=== PATIENT | female | born 1950 | race Caucasian/White ===

== ENCOUNTER → 2018-07-28 | Outpatient (CLI) | payer OTHER ==
[~2018-07-28] MED LIST: DIOVAN HCT 1601 EACH PO; GLUCOVANCE 5-51 EACH PO; MEDROLDOSEPACK PO; PRILOSEC 20 MG20 MG PO; PROAIR HFA8.5 GM PO; TESSALON PERLE100 MG PO
--- NOTE | 2018-07-28 15:21 | 2DMMODE ---
[place] [address] 2 D/M-MODE ECHOCARDIOGRAM Name: STEPHANIA SANTOS Sean Room: [facility]#: [id number] Admission: 07/28/18 Attend Phys: Buffy Stewart MD Discharge: Date of : 54 Date of Service: 07/28/18 1521 Report #: [id number] THIS REPORT FOR: //name// APPROVED REPORT Study performed: 07/28/2018 14:36:38 EXAM: Comprehensive 2D, Doppler, and color-flow Echocardiogram Patient Location: Out-Patient Status: routine BSA: 2.19 HR: 72 bpm BP: 152/85 mmHg Other Information Study Quality: Adequate Indications Murmur 2D Dimensions LVEF(%): 74.34 (>50%) IVSd: 12.22 (7-11mm) LVOT Diam: 20.61 (18-24mm) LVDd: 45.35 mm PWd: 10.87 (7-11mm) Ascending Ao: 31.28 (22-36mm) LVDs: 25.81 (25-40mm) Aortic Root: 29.41 mm Martinez's LVEF: 74.34 % Volumes Left Atrial Volume (Systole) LA ESV Index: 11.40 mL/m2 Aortic Valve AoV Peak Reynaldo.: 1.93 m/s AO Peak Gr.: 14.82 mmHg LVOT Max P.84 mmHg AO Mean Gr.: 8.22 mmHg LVOT Mean P.75 mmHg LVOT Max V: 1.21 m/s AO V2 VTI: 37.14 cm LVOT Mean V: 0.76 m/s CARLY (VTI): 2.08 cm2 LVOT V1 VTI: 23.19 cm Mitral Valve E/A Ratio: 0.72 MV Decel. Time: 302.50 [place] [address] 2 D/M-MODE ECHOCARDIOGRAM Name: STEPHANIA SANTOS Room: [facility]#: [id number] Admission: 07/28/18 Attend Phys: Buffy Stewart MD Discharge: Date of : 54 Date of Service: 07/28/18 1521 Report #: [id number] MV E Max Reynaldo.: 0.62 m/s MV PHT: 87.73 ms MVA (PHT): 2.51 cm2 TDI E/Lateral E': 8.86 E/Medial E': 7.75 Medial E' Reynaldo.: 0.08 m/s Lateral E' Reynaldo.: 0.07 m/s Pulmonary Valve PV Peak Reynaldo.: 1.07 m/s PV Peak Gr.: 4.55 mmHg Tricuspid Valve RAP Estimate: 5.00 mmHg TR Peak Gr.: 21.57 mmHg RVSP: 26.57 mmHg PA Pressure: 26.57 mmHg Left Ventricle The left ventricle is normal size. There is normal LV segmental wall motion. There is normal left ventricular wall thickness. Left ventricular systolic function is normal. The left ventricular ejection fraction is within the normal range. LVEF is 60%. Grade I - abnormal relaxation pattern. Right Ventricle The right ventricle is normal size. The right ventricular systolic function is normal. Atria The left atrium size is normal. The right atrium size is normal. Aortic Valve Mild aortic valve sclerosis. No aortic regurgitation is present. There is no aortic valvular stenosis. Mitral Valve The mitral valve is normal in structure. Mild mitral regurgitation. No evidence of mitral valve stenosis. Tricuspid Valve The tricuspid valve is normal in structure. Mild tricuspid regurgitation. Pulmonic Valve The pulmonary valve is normal in structure. [place] [address] 2 D/M-MODE ECHOCARDIOGRAM Name: STEPHANIA SANTOS Room: [facility]#: [id number] Admission: 07/28/18 Attend Phys: Buffy Stewart MD Discharge: Date of : 54 Date of Service: 07/28/18 1521 Report #: [id number] valvular regurgitation. Great Vessels The aortic root is normal in size. IVC is normal in size and collapses with >50% inspiration Pericardium There is no pericardial effusion. <Conclusion> The left ventricle is normal size. There is normal left ventricular wall thickness. Left ventricular systolic function is normal. The left ventricular ejection fraction is within the normal range. LVEF is 60%. Grade I - abnormal relaxation pattern. The right ventricle is normal size. The left atrium size is normal. Mild aortic valve sclerosis. No aortic regurgitation is present. There is no aortic valvular stenosis. The mitral valve is normal in structure. Mild mitral regurgitation. The tricuspid valve is normal in structure. IVC is normal in size and collapses with >50% inspiration There is no pericardial effusion. There is normal LV segmental wall motion. <ELECTRONICALLY SIGNED> By: Michael Baxter MD, FACC 07/28/18 [id number] Michael Baxter MD, FACC /INF
== END ==
LOC: M.CRD 14:10
DX: I08.1 Rheumatic disorders of both mitral and tricuspid valves (principal)

== ENCOUNTER → 2019-02-11 | Outpatient (CLI) | payer OTHER | LOC: M.RAD 11:22 | DX: I70.0 Atherosclerosis of aorta (principal); R07.1 Chest pain on breathing; M51.34 Other intervertebral disc degeneration, thoracic region ==

== ENCOUNTER → 2019-08-11 | Outpatient (CLI) | payer OTHER ==
[2019-08-11 10:19] LABS: URINE BILIRUBIN NEGATIVE (Negative); URINE BLOOD NEGATIVE (Negative); URINE CLARITY CLEAR; URINE COLOR YELLOW; URINE GLUCOSE-RANDOM NEGATIVE (Negative); URINE KETONES NEGATIVE (Negative); URINE LEUKOCYTES NEGATIVE (Negative); URINE NITRITE NEGATIVE (Negative); URINE PROTEIN NEGATIVE (Negative); URINE SPECIFIC GRAVITY 1.015 (1.005-1.030)
[2019-08-11 10:25] VITALS: BP 112/79
[2019-08-11 10:28] LABS: HEMOGLOBIN 9.5 gm/dL (12.0-15.0); MCHC 31.7 g/dL (28.0-37.0); MCV 75.7 fL (80.0-100.0); MPV 7.5 fl. (7.2-11.1); PLATELET COUNT* 340 thou/uL (150-400); RBC 3.96 mil/uL (4.20-5.00); RDW-CV 16.9 % (10.5-14.5)
[2019-08-11 11:23] LABS: ABSOLUTE EOSINOPHILS 0.4 thou/uL (0.0-0.7); ABSOLUTE LYMPHOCYTES 1.4 thou/uL (0.8-5.3); ABSOLUTE MONOCYTES 0.3 thou/uL (0.0-1.2); ABSOLUTE NEUTROPHILS 3.8 thou/uL (1.6-8.1); PLATELET ESTIMATE ADEQUATE
--- NOTE | 2019-08-11 11:27 | NUR ---
ARRIVED AMBULATORY. MADE SELF COMFORTABLE. HISTORY REVIEWED. IV STARTED WTIH OUT DFFICULTY. INFUSION COMPELTED AND TOERLATED WELL. DISCHARGE INSTRUCTION REVIEWED. DENEIS QUESTIONS OR NEEDS AT DISCHARGE.
[2019-08-12 09:07] LABS: HEMOGLOBIN 9.1 g/dL (11.1-15.9)
--- NOTE | 2019-08-13 15:41 | HEMONC ---
[address] [address] HEMATOLOGY ONCOLOGY NOTE Name: STEPHANIA SNATOS [facility]#: [id number] Admission: 08/11/19 Attend Phys: Fredis Marcano MD Discharge: Date of : 54 Report #: [id number] THIS REPORT FOR: //name// CC: Buffy Marcano DATE OF SERVICE: 08/11/2019 REFERRING PHYSICIAN: Buffy Stewart MD REASON FOR CONSULTATION: Iron deficiency anemia requiring intravenous iron. SUBJECTIVE: Thank you so much for this consultation. As you know, the patient is a 69-year-old female who had a past medical history of diabetes mellitus, has been evaluated because of iron deficiency. Her hemoglobin on 09/23/2019 showed hemoglobin of 9 with MCV of 77. Iron studies revealed a low ferritin 8 ng/mL with a high normal TIBC of 449 with a low saturation and low total iron. The patient reported mild fatigue; however, she continues to be active and she is still working. The patient reported ice cravings in April. The patient reported sometimes she would see blood in the stool. She had an EGD and colonoscopy, which per the patient showed some polyps and diverticulosis, probable hemorrhoids; however, no reports were available. The patient denies any vaginal bleeding or gross hematuria. She denies any nausea, vomiting, or epigastric pain to suggest peptic ulcer disease. She does not have any inherited blood disorder she is aware of. REVIEW OF SYSTEMS: All systems were reviewed. It was negative except the above. PAST MEDICAL HISTORY: Diabetes mellitus, GERD, hypertension. PAST SURGICAL HISTORY: Tubal ligation and lap band in 2004, reversed in 2009; hernia repair in 2009. HEALTH SCREENING: Last colonoscopy in 04/2019 and mammogram in 09/2018. FAMILY HISTORY: Mother with breast cancer at age of 74. SOCIAL HISTORY: She is an ex-smoker, 1/2 pack between the age of 29 and 50. Does not drink alcohol. MEDICATIONS: Glyburide/metformin 5/500 two times a day, pravastatin 40 mg p.o. daily, Prilosec 20 mg p.o. twice a day, Xanax 0.5 mg as needed. PHYSICAL EXAMINATION: [place] [address] HEMATOLOGY ONCOLOGY NOTE Name: STEPHANIA SANTOS Room: [facility]#: [id number] Admission: 08/11/19 Attend Phys: Fredis Marcano MD Discharge: Date of : 54 Report #: [id number] VITAL SIGNS: Today, blood pressure is 128/81, pulse is 96, respirations 20, temperature is 97.1, saturation is 98% on room air. GENERAL: The patient was sitting in chair, was not in acute distress. LUNGS: Clear to auscultations bilaterally. HEART: Regular rate and rhythm. S1, S2 within normal limits. ABDOMEN: Soft, nontender, nondistended, bowel sounds positive. EXTREMITIES: No edema, no cyanosis, no clubbing. LABORATORY DATA: CBC on 07/24/2019 showed WBC 7.0, hemoglobin 9.0, MCV 77, RDW 15.1 with platelets 379. Iron studies showed low ferritin at 8 ng/mL and saturation 7%, low, TIBC high normal 449. Total iron was at 31, creatinine 0.93. ASSESSMENT AND PLAN: A 69-year-old female was evaluated because of symptomatic iron deficiency anemia with a microcytic anemia. The patient had symptoms of pica (ice cravings). Her iron studies are consistent with iron deficiency. The patient is not able to tolerate oral iron due to severe GI side effects, including indigestion. RECOMMENDATIONS: 1. We will arrange for intravenous iron with Feraheme 510 mg intravenously x 2 one week apart. 2. I would like to complete the work up by obtaining hemolysis workup; however, less likely peripheral blood smear. The patient does not have any suggestion of inherited blood disorder like thalassemia. 3. We will follow up in 4 weeks to evaluate the response to the intravenous iron. 4. Refer back to GI for capsule endoscopy. Also, I would like to obtain a urinalysis to rule out any possibility of microscopic hematuria. <ELECTRONICALLY SIGNED> By: Fredis Marcano MD 08/13/19 1541 [id number] [id number] Marcano MD /nt
== END ==
LOC: M.LAB 04:48 → M.RTH 04:48 → M.INFUS 04:48 → M.RTH 09:00
PROVIDERS: Internal Medicine
DX: D50.9 Iron deficiency anemia, unspecified (principal); I10 Essential (primary) hypertension; E11.9 Type 2 diabetes mellitus without complications; K21.9 Gastro-esophageal reflux disease without esophagitis; Z87.891 Personal history of nicotine dependence

== ENCOUNTER → 2019-08-18 | Outpatient (CLI) | payer OTHER ==
[2019-08-18 08:40] VITALS: BP 121/68
--- NOTE | 2019-08-18 09:21 | NUR ---
ARRIVED AMBULATORY. MADE SELF COMFORTABLE. DENIES ADVERSE REACTION TO INFUSION OF SAME LAST WEEK. IV STARTED WITH OUT DIFFICULTY. INFUSION COMPLETED AND TOLERATED WELL. DENIES QUESTIONS OR NEEDS AT DISCHARGE.
== END ==
LOC: M.INFUS 05:13
DX: D50.9 Iron deficiency anemia, unspecified (principal)

== ENCOUNTER → 2019-09-03 | Outpatient (CLI) | payer OTHER ==
[2019-09-03 08:07] LABS: ABSOLUTE BASOPHILS 0.1 thou/uL (0.0-0.2); ABSOLUTE EOSINOPHILS 0.2 thou/uL (0.0-0.7); ABSOLUTE LYMPHOCYTES 1.5 thou/uL (0.8-5.3); ABSOLUTE MONOCYTES 0.3 thou/uL (0.0-1.2); ABSOLUTE NEUTROPHILS 2.7 thou/uL (1.6-8.1); BASOPHILS 1.1 %; EOSINOPHILS 4.3 %; HEMATOCRIT 33.1 % (37.0-47.0); HEMOGLOBIN 10.8 gm/dL (12.0-15.0); LYMPHOCYTES 31.9 %; MCH 26.7 pg (26.0-34.0); MCHC 32.8 g/dL (28.0-37.0); MCV 81.3 fL (80.0-100.0); MPV 7.3 fl. (7.2-11.1); NUCLEATED RBCS 0 /100WBC; PLATELET COUNT* 265 thou/uL (150-400); POLYS 55.7 %; RBC 4.07 mil/uL (4.20-5.00); RDW-CV 22.8 % (10.5-14.5); WBC 4.8 thou/uL (4.0-11.0)
[2019-09-03 08:29] LABS: OVALOCYTES 1+
[2019-09-03 08:30] LABS: ANISOCYTOSIS 2+; MICROCYTES 1+; PLATELET ESTIMATE ADEQUATE
[2019-09-03 09:13] LABS: % SATURATION 29 % (20-39); IRON 91 ug/dL (50-175)
== END ==
LOC: M.LAB 07:45
PROVIDERS: Internal Medicine
DX: D50.9 Iron deficiency anemia, unspecified (principal)

== ENCOUNTER → 2019-09-08 | Outpatient (CLI) | payer OTHER ==
--- NOTE | 2019-09-11 14:46 | HEMONC ---
[address] [address] HEMATOLOGY ONCOLOGY NOTE Name: STEPHANIA SANTOS Room: [facility].#: [id number] Admission: 09/08/19 Attend Phys: Fredis Marcano MD Discharge: Date of : 54 Report #: [id number] THIS REPORT FOR: //name// CC: Buffylinda Stewart Fredis Marcano DATE OF SERVICE: 09/08/2019 DIAGNOSIS: Iron deficiency anemia. SUBJECTIVE: The patient presented today as four weeks followup. She felt more energy with lest fatigue. Her ice cravings and pica symptoms resolved completely. Her hemoglobin has improved from 9.1 to 10.8 and her ferritin also improved to the level of 350. The patient's report was referred previously for capsule endoscopy since she had an EGD and colonoscopy, which was unremarkable. She continues to deny any blood in the stool. I obtained a urinalysis last visit, which came back negative for any blood in the urine. REVIEW OF SYSTEMS: All systems reviewed. It was negative except the above. PAST MEDICAL, SOCIAL, AND FAMILY HISTORY: Unchanged from last visit. PHYSICAL EXAMINATION: VITAL SIGNS: Today, blood pressure is 150/85, pulse is 81, respirations 20, temperature is 98.1, and saturations 98% on room air. GENERAL: The patient was sitting in chair, was not in acute distress. LUNGS: Clear to auscultations bilaterally. HEART: Regular rate and rhythm. S1, S2 within normal limits. ABDOMEN: Soft, nontender, nondistended, bowel sounds positive. ASSESSMENT AND PLAN: A 69-year-old female who is being evaluated because of iron deficiency anemia, unknown source. The patient had a suboptimal response to intravenous iron with Feraheme. RECOMMENDATIONS: 1. We will repeat her iron studies within next 8 weeks with B12 and folic acid. If the patient does not have normalization of her hemoglobin, we might repeat her IV iron infusion. 2. We will refer the patient to GI for capsule endoscopy to rule out any gastrointestinal blood loss. <ELECTRONICALLY SIGNED> By: Fredis Marcano MD 09/11/19 1446 1022 [id number] Marcano MD /nt
== END ==
LOC: M.RTH 05:19
DX: D50.9 Iron deficiency anemia, unspecified (principal)

== ENCOUNTER → 2019-11-10 | Outpatient (CLI) | payer OTHER ==
--- NOTE | 2019-11-16 08:45 | HEMONC ---
[address] [address] HEMATOLOGY ONCOLOGY NOTE Name: STEPHANIA SANTOS Room: [facility]#: [id number] Admission: 11/10/19 Attend Phys: Fredis Marcano MD Discharge: Date of : 54 Report #: [id number] THIS REPORT FOR: //name// CC: Buffy Marcano DATE OF SERVICE: 11/10/2019 REASON FOR CONSULTATION: Iron-deficiency anemia, resolved. SUBJECTIVE: The patient presented today as 3 months' followup. She has been doing very well in terms of her energy level. She denies any ice cravings. Her hemoglobin continues to improve to the normal range of 12.5, previously it was 9.1. The patient continues to have no hematuria or blood in the stool, black stool, melena or hematochezia. She underwent a PillCam since her last visit, which was unremarkable. REVIEW OF SYSTEMS: All systems were reviewed. It was negative except the above. PAST MEDICAL, SOCIAL, AND FAMILY HISTORY: Unchanged from last visit. PHYSICAL EXAMINATION: VITAL SIGNS: Today, temperature is 97.2, saturations 98% on room air, pulse is 79, blood pressure is 133/84. GENERAL: The patient was sitting in chair, was not in acute distress. LUNGS: Clear to auscultations bilaterally. No crackles, no wheezing. HEART: Regular rate and rhythm. S1, S2 within normal limits. LABORATORY DATA: On 11/03/2019, hemoglobin is 12.5, MCV 85.3, platelets 308. Ferritin 93, saturation is 22%, TIBC 376. ASSESSMENT AND PLAN: A 69-year-old female who is being evaluated because of iron-deficiency anemia, which resolved by intravenous iron. A workup including EGD and colonoscopy showed diverticulosis, capsule endoscopy was unremarkable. At this point, I would like to continue to monitor this patient's symptoms and labs. We will obtain iron studies and hemoglobin within 4 months from today. The patient was advised to call if she developed any symptoms like fatigue, ice cravings, and decreased energy. <ELECTRONICALLY SIGNED> By: Fredis Marcano MD 11/16/19 0845 0937 [id number] Marcano MD /nt
== END ==
LOC: M.RTH 05:10
DX: D50.9 Iron deficiency anemia, unspecified (principal)

== ENCOUNTER → 2020-06-09 | Outpatient (CLI) | payer MEDICARE | LOC: M.ULTRA 08:00 | PROVIDERS: ATTEND Family Medicine | DX: K76.0 Fatty (change of) liver, not elsewhere classified (principal); K44.9 Diaphragmatic hernia without obstruction or gangrene ==

== ENCOUNTER → 2020-07-07 | Outpatient (CLI) | payer MEDICARE | LOC: M.CT 08:30 | PROVIDERS: ATTEND Family Medicine | DX: K76.0 Fatty (change of) liver, not elsewhere classified (principal); K44.9 Diaphragmatic hernia without obstruction or gangrene; K43.9 Ventral hernia without obstruction or gangrene; I70.0 Atherosclerosis of aorta ==

== ENCOUNTER → 2020-09-06 | Outpatient (CLI) | payer MEDICARE | LOC: M.NUC 06:49 | PROVIDERS: ATTEND Internal Medicine Gastroenterology | DX: K44.9 Diaphragmatic hernia without obstruction or gangrene (principal); R14.0 Abdominal distension (gaseous); R11.0 Nausea; R10.9 Unspecified abdominal pain ==

== ENCOUNTER → 2021-06-29 | Outpatient (CLI) | payer MEDICARE | LOC: M.RAD 06-22 09:00 | PROVIDERS: ATTEND Internal Medicine Gastroenterology | DX: K21.9 Gastro-esophageal reflux disease without esophagitis (principal); K44.9 Diaphragmatic hernia without obstruction or gangrene ==

== ENCOUNTER → 2022-01-26 | Outpatient (CLI) | payer OTHER | LOC: M.RAD 08:32 | PROVIDERS: ATTEND Family Medicine | DX: R05.9 Cough, unspecified (principal); K44.9 Diaphragmatic hernia without obstruction or gangrene; M47.814 Spondylosis without myelopathy or radiculopathy, thoracic region ==